=== PATIENT | female | born 1965 | race African-American/Black ===

== ENCOUNTER 2023-06-08 16:50 | Emergency (ER) | payer BC, SELFPAY ==
[2023-06-08 17:14] VITALS: BP 134/77; PULSE 82; RESP 18; TEMP 36.1; O2SAT 98
--- NOTE | 2023-06-08 18:02 | ED.EYEPROB ---
HPI - Eye Problem General Chief complaint: Eye Problems Stated complaint: rt eye irritation Time Seen by Provider: 06/08/23 17:48 Source: patient and RN notes reviewed Mode of arrival: ambulatory Limitations: no limitations History of Present Illness HPI Narrative: Patient presents today stating she was rubbing her right eye due to a foreign body sensation earlier today, then later looked in the mirror and saw redness to her eye. Denies any pain or current foreign body sensation. She has tried no [id number] treatment prior to arrival. History of dry eye for which she uses artificial tears. Related Data Home Medications Medication Instructions Recorded Confirmed amlodipine 2.5 mg tablet 5 mg PO DAILY 06/08/23 06/08/23 atorvastatin 40 mg tablet 40 mg PO DAILY 06/08/23 06/08/23 metformin 1,000 mg tablet 1,000 mg PO BID 06/08/23 06/08/23 Allergies Allergy/AdvReac Type Severity Reaction Status Date / Time No Known Allergies Allergy Verified 06/08/23 17:52 Review of Systems Review of Systems: CONSTITUTIONAL: Denies body aches, fever, chills, or sweats. EYES: Denies visual changes, or discharge.+ right eye redness ENT: Denies rhinorrhea, congestion, sore throat, or otalgia. CARDIOVASCULAR: Denies chest pain, palpitations, or edema. RESPIRATORY: Denies cough or dyspnea. GASTROINTESTINAL: Denies abdominal pain, nausea, vomiting, or diarrhea. GENITOURINARY: Denies dysuria or hematuria. SKIN: Denies rash, itching, or wounds. MUSCULOSKELETAL: Denies back pain, joint pain, or myalgia. NEUROLOGIC: Denies headache, numbness, tingling, or weakness. PSYCH: Denies depression or anxiety. [facility] Past Medical History Medical History (Updated 06/08/23 @ 18:06 by Christy Mota, [facility], ) High cholesterol Hypertension Pre-diabetes Comments At time of signature, I have reviewed and agree with nursing past medical, surgical, social and family history unless otherwise noted. Please see nursing chart for further information. There is no relevant family history pertinent to the presenting complaint Exam Narrative: GENERAL: Well-appearing, well-nourished, and in no acute distress. HEAD: Normocephalic, atraumatic. EYES: EOMI. PERRL. Right subconjunctival hemorrhage on the medial portion of the eye. Lids and lashes normal. Left eye normal. ENT: Mucous membranes pink and moist. NECK: Normal AROM. CHEST: No respiratory distress. EXTREMITIES: Normal range of motion. No edema. SKIN: Warm, dry, no rash. Capillary refill normal. Normal skin turgor. NEURO: No focal deficits. Alert and oriented x3. Gait steady. PSYCH: Normal affect. No signs of depression or anxiety. Course Course Level of Care: Express Care Visit Vital Signs Vital signs: Vital Signs Temperature 97.0 F L 06/08/23 17:14 Pulse Rate 82 06/08/23 17:14 Respiratory Rate 18 06/08/23 17:14 Blood Pressure 134/77 06/08/23 17:14 Pulse Oximetry 98 06/08/23 17:14 Oxygen Delivery Room Air 06/08/23 17:14 Temperature 97.0 F L 06/08/23 17:14 Pulse Rate 82 06/08/23 17:14 Respiratory Rate 18 06/08/23 17:14 Blood Pressure 134/77 06/08/23 17:14 Pulse Oximetry 98 06/08/23 17:14 Oxygen Delivery Room Air 06/08/23 17:14 Reviewed. Pt has been instructed to follow up with her PCP regarding her elevated blood pressure today. MDM - Eye Problem MDM Narrative Medical decision making narrative: Exam consistent with subconjunctival hemorrhage. Discussed diagnosis and treatment. Patient has an appointment with her eye doctor next week for yearly evaluation. No testing or further evaluation necessary at this time. Anticipatory guidance given. Differential Diagnosis Differential diagnosis: Likely corneal abrasion, conjunctivitis and subconjunctival hemorrhage Critical Care Time Critical Care Time Critical Care Time: No Discharge Plan Discharge Clinical Impression: Subconjunctival hemorrhage of right eye
== END 2023-06-08 18:11 | disposition home or self-care (01) ==
PROVIDERS: Emergency Provider Nurse Practitioner; PCP Internal Medicine
DX: H11.31 Conjunctival hemorrhage, right eye (principal); E78.00 Pure hypercholesterolemia, unspecified; I10 Essential (primary) hypertension; R73.03 Prediabetes
CPT/HCPCS: 99202; A9270; G0463